=== PATIENT | female | born 2000 | race Hispanic/Latino ===

== ENCOUNTER 2022-08-29 12:11 | Emergency (ER) | payer OTHER ==
[~2022-08-29] VITALS: Ht 157.5 cm; Wt 66.0 kg
[~2022-08-29 12:11] MED LIST: CEFP100T PO; DOXY1TAB59 PO
[2022-08-29 12:40] VITALS: BP 127/79
[2022-08-29] MEDS ORDERED: ONDA4TAB6 PO (14:23)
[2022-08-29] MEDS ORDERED: PRENTAB9 PO (14:23)
== END 2022-08-29 14:07 | disposition admitted as inpatient to this hospital (09) ==
LOC: M ED 12:11
DX: R10.9 Unspecified abdominal pain (principal); Z04.1 Encounter for examination and observation following transport accident; Z3A.00 Weeks of gestation of pregnancy not specified

== ENCOUNTER 2022-08-29 14:02 | Outpatient (CLI) | payer OTHER ==
[~2022-08-29] VITALS: Ht 157.5 cm; Wt 74.0 kg
[2022-08-29] MEDS ORDERED: PRENTAB9 PO (14:23)
[2022-08-29] MEDS ORDERED: ONDA4TAB6 PO (14:23)
[2022-08-29] MEDS ORDERED: HOME MED LIST COMPLETE! XX SCH (14:25)
[2022-08-29 14:26] VITALS: BP 113/67
[2022-08-29] MEDS ORDERED: ACETAMINOPHEN 500 MG TAB PO ONE (16:25)
== END 2022-08-29 17:00 | disposition home or self-care (01) ==
LOC: M LDO 14:02
PROVIDERS: ATTEND Registered Nurse
DX: O9A.212 Injury, poisoning and certain other consequences of external causes complicating pregnancy, second trimester (principal); S30.1XXA Contusion of abdominal wall, initial encounter; V49.50XA Passenger injured in collision with unspecified motor vehicles in traffic accident, initial encounter; Z3A.27 27 weeks gestation of pregnancy
CPT/HCPCS: 36415; 59025; 99284; G0463